=== PATIENT | male | born 1955 | race Caucasian/White ===

== ENCOUNTER 2020-05-07 08:45 | Day surgery (SDC) | payer BC ==
[2020-05-07] MEDS ORDERED: LACTATED RINGERS 1,000 ML IV ONE ×2 (08:55→10:26)
[2020-05-07] MEDS ORDERED: fentaNYL 250 MCG/5 ML VIAL IVP ONE (09:45)
[2020-05-07] MEDS ORDERED: MIDAZOLAM 2 MG/2 ML VIAL IVP ONE (09:45)
[2020-05-07] MEDS ORDERED: ONDANSETRON 4 MG/2 ML VIAL ONE (09:47)
[2020-05-07 10:53] VITALS: BP 103/71
== END 2020-05-07 08:46 | disposition home or self-care (01) ==
LOC: SDS 08:45
PROVIDERS: ATTEND Surgery
PROC: 0DBL8ZZ Excision of Transverse Colon, Via Natural or Artificial Opening Endoscopic (ICD-10-PCS; 2020-05-07)
PROC: 0DBN8ZZ Excision of Sigmoid Colon, Via Natural or Artificial Opening Endoscopic (ICD-10-PCS; 2020-05-07)
PROC: 0DBK8ZZ Excision of Ascending Colon, Via Natural or Artificial Opening Endoscopic (ICD-10-PCS; principal; 2020-05-07 10:00)
DX: Z12.11 Encounter for screening for malignant neoplasm of colon (principal); D12.3 Benign neoplasm of transverse colon; D12.2 Benign neoplasm of ascending colon; D12.7 Benign neoplasm of rectosigmoid junction; K57.30 Diverticulosis of large intestine without perforation or abscess without bleeding; K64.8 Other hemorrhoids; Z87.891 Personal history of nicotine dependence
CPT/HCPCS: 45380; J3010; J7120

== ENCOUNTER 2020-05-09 18:40 | Outpatient (CLI) | payer BC ==
--- NOTE | 2020-05-09 18:59 | XRAY Report ---
PROCEDURE: Chest 2 View X-Ray INDICATIONS: SCREENING FOR LUNG CANCER TECHNIQUE: 2 view(s) of the chest. COMPARISON: None. FINDINGS: Surgical changes and devices: None. Lungs and pleura: No pleural effusions or pneumothorax. Lungs are difficult to accurately assess du e to body habitus and reduced inspiratory volume. There is a mild prominence of the interstitium but this could simply represent crowding of the bronchovascular markings.. Mediastinum: Mediastinal contours are normal. Heart size is normal. Bones and chest wall: No suspicious bony abnormalities. Soft tissues appear unremarkable. IMPRESSION: Reduced inspiration, no definite acute disease. By this examination a large lung mass is not suspected. Please note that accurate screening for lung carcinoma is accomplished by low-dose no ncontrast specialized CT technique which is available. Reviewed by: Will Graham MD on 05/09/2020 6:58 PM PDT Approved by: Will Graham MD on 05/09/2020 6:58 PM PDT Station ID: [id number]
== END 2020-05-09 18:41 | disposition home or self-care (01) ==
LOC: DI 18:40
PROVIDERS: ATTEND Family Medicine
DX: Z12.2 Encounter for screening for malignant neoplasm of respiratory organs (principal)
CPT/HCPCS: 71046

== ENCOUNTER 2023-07-15 07:04 | Outpatient (CLI) | payer MEDICARE ==
--- NOTE | 2023-07-15 09:28 | Ultrasound Report ---
PROCEDURE: Aorta Screening INDICATIONS: SCREENING FOR CARDIOVASCULAR DISEASE TECHNIQUE: Real time scanning was performed of the aorta and iliac arteries, with image documentatio n. COMPARISON: None. FINDINGS: Aorta: Proximal aortic diameter measures 2.0 cm. Mid-aorta measures 2.0 cm. Distal aortic diameter is 1.7 cm. Iliac arteries: Not seen secondary to overlying bowel gas. IMPRESSION: The abdominal aorta is normal in caliber. The iliac arteries are not seen secondary to overlying casper l gas. Recommended intervals for follow-up imaging of ectatic aortas and abdominal aortic aneurysms, per ACR consensus guidelines: 2.5-2.9 cm: 5 years 3.0-3.4 cm: 3 years 3.5-3.9 cm: 2 years 4.0-4.4 cm: 1 year 4.5-4.9 cm: 6 months + endovascular referral 5.0-5.5 cm: 3-6 months + endovascular referral Reviewed by: Leo Martinez MD on 07/15/2023 9:27 AM PST Approved by: Leo Martinez MD on 07/15/2023 9:27 AM PST Station ID: [id number]
== END 2023-07-15 07:05 | disposition home or self-care (01) ==
LOC: DI 07:04
PROVIDERS: ATTEND Family Medicine
DX: Z13.6 Encounter for screening for cardiovascular disorders (principal)

== ENCOUNTER 2023-08-08 09:10 | Outpatient (CLI) | payer MEDICARE, OTHER ==
--- NOTE | 2023-08-08 13:18 | CT Report ---
PROCEDURE: Lung Cancer Screen INDICATIONS: HIST OF SMOKING TECHNIQUE: A CT scan of the chest was performed. Intravenous contrast media was not administered. Images were re corded and evaluated at appropriate window settings. Reformats: axial MIP of the chest, coronal and s agittal. For radiation dose reduction, the following was used: automated exposure control, adjustment of mA and/or kV according to patient size. COMPARISON: None. FINDINGS: Image quality: Excellent. Prior cancer history: None given Lungs and pleura: No pleural effusions. No pneumothorax. 7 x 8 mm pulmonary nodule, right lower lobe , axial image 56/4 and sagittal image 66/8. 3 x 5 mm juxtapleural nodule in the lingula of the left u pper lobe, axial image 64/4.. Mediastinum: Heart size is normal. No pericardial effusion. Moderate LAD coronary artery calcificatio ns. Aneurysmal dilatation of the ascending aorta, measuring 4.7 cm. No mediastinal adenopathy by size criteria. Chest wall and lower neck: Thyroid is unremarkable. No axillary or supraclavicular adenopathy by size . Bones: No aggressive osseous abnormality. Upper Abdomen: Unremarkable. IMPRESSION: Lung RAD: 3 - Probably Benign. Recommendation: Continue screening in 6 Months with LDCT Non-Lung Significant Findings: Aortic Aneurysm. Coronary artery calcifications, moderate Reviewed by: Alex Lange MD on 08/08/2023 1:16 PM PST Approved by: Alex Lange MD on 08/08/2023 1:16 PM PST Station ID: [id number]
== END 2023-08-08 09:11 | disposition home or self-care (01) ==
LOC: DI 09:10
PROVIDERS: ATTEND Nurse Practitioner Family
DX: Z12.2 Encounter for screening for malignant neoplasm of respiratory organs (principal); Z87.891 Personal history of nicotine dependence; I71.21 Aneurysm of the ascending aorta, without rupture; I25.10 Atherosclerotic heart disease of native coronary artery without angina pectoris

== ENCOUNTER 2023-11-17 15:39 | Outpatient (CLI) | payer MEDICARE ==
--- NOTE | 2023-11-17 16:07 | Sleep Patient Instructions ---
Sleep Center Visit Summary - Patient Visit Information Reason for Visit: Initial consultation - Patient Instructions Additional Instructions: You will continue with CPAP therapy with pressure set at 8-14 cmH2O. A supply prescription will be updated with your DME. We encourage you to continue to try to lose weight. Please follow up with the sleep care office in 1 year. - Clinic Information Contact: [facility] [address] [place] [email or web address] T: [phone]
--- NOTE | 2023-11-17 16:13 | SLEEP CARE CONSULTATION ---
Information from patient questionnaire entered by Nguyen Leary. I have reviewed and concur with the information entered by Nguyen Leary. This document represents the service I personally performed and the decisions made by me, Rosana De La Torre ARNP. History of Present Illness Service Date and Time: 11/17/2023 1539 Reason for Visit: New patient, Previously diagnosed sleep apnea, sleep apnea on CPAP therapy Chief Complaint: reports: Other (ESTABLISH A NEW DOCTOR) Date of Onset: 09/2016 Usual bedtime: 2200 Time it takes to fall asleep: 15MINS Snores at night: Yes Observed to quit breathing while asleep: No Sleeps alone due to snoring: No Number of times waking at night: 2-3 Reasons for waking at night: reports: Bathroom Toss, Turn, or Twitch while sleeping: Yes Recalls having dreams: Yes Usually gets out of bed at: 9931-6543 Feels refreshed in the morning: Yes Morning headache: No Sleepy or fatigued during the day: No Ever fallen asleep while driving: No Takes day naps: No Dreams during day naps: No Prior sleep studies: Yes Year and Where: 09/2016 [facility] Additional HPI information: PERNELL BENNETT was previously diagnosed to have moderate, AHI 27.1, obstructive sleep apnea-hypopnea syndrome as seen in sleep study dated 09/22/2016 at [facility] and comes in today to establish care for CPAP therapy. - Parasomnia Symptoms Ever been unable to move upon waking from sleep: No Walks in sleep: No Talks in sleep: No Ever acted out dreams in sleep: No Ever felt weak in the knees when startled or emotional: No Bothered by creepy, crawly, restless sensations in legs: No Problems with memory or concentration: No CPAP Compliance Data - Data Reviewed with Patient Average duration of nightly device use: 7 hours 51 mins Compliance rate %: 98.9 (89/90 days used) Current pressure setting (cmH2O): 8-14 Average residual AHI: 3.9 Central apnea: 0.2 Obstructive apnea: 0.9 Hypopnea: 2.8 Average large leak: 1 min 54 secs Compliance data discussion: He has a Dreamstation 2 that was a replacement of his recalled CPAP. He is getting his supplies from [employer]. He is using a full face AirFit F20, medium cushion. Subjective Patient concerns: reports: mask discomfort (straps leaves sneed), dry mouth, nose, throat (occasional dry mouth). denies: aerophagia, air blowing in eyes, mask leak noise, condensation in mask/hose, nasal congestion, epistaxis Observed to snore while using device: No Current pressure setting perceived as: comfortable On therapy, patient: reports: sleeping better, awakening more refreshed, being more awake and alert during the day, more rested overall. denies: drowsiness while driving Initial Errol Sleepiness Scale score: 3 (11/07/23) Past Medical History Past Medical History: reports: Hypertension, Gout, Hypothyroidism Social History The patient's occupation is a RETIRED. Patient is and lives in [place]. Have you smoked in the past 12 months: No Cigarettes per day (20/pack): 20 Years of smokin Quit date: 1988 Smoking Pack Years: 20.0 Alcohol use: Yes Alcohol amount and frequency: 1 BEER 1-2 A WEEK Caffeine use: Yes Caffeine amount and frequency: couple cups coffee every morning Family History Family history of sleep disordered breathing: Yes Family Hx Sleep Apnea: Father: Sleep apnea - Untreated, Sibling: Snoring, Sleep apnea - Treated Allergies and Home Medications Known drug allergies: Yes ( LISTED ) Drug allergies reviewed: Yes Home medication list reviewed: Yes (as listed) Allergy and home medication list: Allergies naproxen [From Naprosyn] Allergy (Verified 11/15/23 11:17) Unknown Penicillins Allergy (Verified 11/15/23 11:17) Unknown Sulfa (Sulfonamide Antibiotics) Allergy (Verified 11/15/23 11:17) Unknown sulfamethoxazole [From Septra] Allergy (Verified 11/15/23 11:17) Unknown trimethoprim [From Septra] Allergy (Verified 11/15/23 11:17) Unknown Home Medications Medication Instructions Recorded Confirmed Last Taken Type Levothyroxine [Synthroid] 75 mcg PO QDAC 05/06/20 11/15/23 05/06/20 History Losartan Potassium 25 mg PO DAILY 05/06/20 11/15/23 05/06/20 History Ascorbic Acid [Vitamin C] See Rx Instructions .ROUTE .COM[facility] 11/15/23 11/15/23 Unknown History Calcium Carbonate [Calcium] See Rx Instructions .ROUTE .COMPLEX 11/15/23 11/15/23 Unknown History Cholecalciferol (Vitamin D3) See Rx Instructions .ROUTE .[facility] 11/15/23 11/15/23 Unknown History [Vitamin D3] Cyclobenzaprine HCl See Rx Instructions .ROUTE .[facility] 11/15/23 11/15/23 Unknown History Focus Factor See Rx Instructions .ROUTE .[facility] 11/15/23 11/15/23 Unknown History Loratadine [Allergy Relief] See Rx Instructions .ROUTE .[facility] 11/15/23 11/15/23 Unknown History Magnesium See Rx Instructions .ROUTE .[facility] 11/15/23 11/15/23 Unknown History Multivit-Min/Folic/Vit K/Lycop See Rx Instructions .ROUTE .[facility] 11/15/23 11/15/23 Unknown History [One Daily Men's 50 Plus D3 Tab] Quercetin See Rx Instructions .ROUTE .[facility] 11/15/23 11/15/23 Unknown History Serolean See Rx Instructions .ROUTE .[facility] 11/15/23 11/15/23 Unknown History Terazosin [Hytrin] See Rx Instructions .ROUTE .[facility] 11/15/23 11/15/23 Unknown History Ubidecarenone [Co Q-10] See Rx Instructions .ROUTE .[facility] 11/15/23 11/15/23 Unknown History Review of Systems Weight gain over past 5 years: 5 Weight loss over past 5 years: 5 Cardiovascular: reports: high blood pressure Respiratory: reports: wheeze Urinary: reports: frequency Ear/Nose/Throat: reports: nasal congestion, sinus problems, nose bleeds, dry mouth/throat, tonsillectomy, wisdom teeth removed Endocrine: reports: thyroid disease Musculoskeletal: reports: back pain Immunologic: reports: sneezing, allergies to food or environment Physical Exam Vital signs obtained and entered by: NGUYEN Esqueda MA Blood Pressure: 136/84 (LEFT ARM) Cuff size: long Heart Rate: 88 O2 Saturation: 96 Height: 5 ft 8.25 in Weight: 252 lb 9.6 oz Body Mass Index: 38.1 BMI Classification: Obese Neck circumference: 17.25 Heart: regular rate and rhythm Lungs: clear bilaterally Impression and Plan 1. Obstructive Sleep Apnea-Hypopnea Syndrome, moderate, with good treatment compliance and good apnea control. On CPAP therapy, the patient has better sleep quality and is more rested overall. He is in need of supplies. I will send an updated supply prescription to [facility] so he can get more supplies. He has significant improvement of his sleep apnea and is satisfied with current CPAP therapy. He says he has no issues with his mask except for lines on his face. I advised him to try cloth barriers on the straps to reduce lines on his face. He voiced understanding. Patient denies significant problems with oral dryness or any nasal congestion, epistaxis, skin irritation or aerophagia. Patient's apnea severity and rationale for treatment to reduce apnea, improve sleep quality and reduce cardiovascular and cerebrovascular events was reviewed. I also reviewed the benefit of consistent device use of CPAP for hypertension. 2. Obesity, unspecified. Currently patients BMI is 38.1. Obesity increases the risk of apnea, CPAP pressure requirements and overall health risks especially cardiovascular and diabetes. Thus patient is advised to lose weight. * Continue auto CPAP pressure at 8-14 cmH2O * Update supply prescription * Notify me if snoring with mask or feeling that the pressure is too much or too little * Attempt to lose weight * Call this office if any problems using CPAP * Return for follow up in 12 months, or sooner if concerns arise Counseling Topics: Spare mask, Weight loss health impact Prescriptions: Device supplies Follow up with Sleep Care in: 1 year Visit Type: In Office Time Spent with Patient (minutes): 30 Provider Statement: I spent 100% of the Face to Face Visit with the patient with greater than 50% spent counseling the patient and coordination of care.
[2023-11-17 16:18] VITALS: BP 136/84; O2SAT 96
== END 2023-11-17 15:40 | disposition home or self-care (01) ==
LOC: SC 15:39
PROVIDERS: ATTEND Nurse Practitioner Family
DX: G47.33 Obstructive sleep apnea (adult) (pediatric) (principal); Z87.891 Personal history of nicotine dependence; E66.9 Obesity, unspecified; Z68.38 Body mass index [BMI] 38.0-38.9, adult
CPT/HCPCS: 99203; G0463; 99212

== ENCOUNTER 2024-02-07 11:03 | Outpatient (CLI) | payer MEDICARE ==
--- NOTE | 2024-02-07 22:10 | CT Report ---
PROCEDURE: Chest WO INDICATIONS: SOLITARY PULMONARY NODULE TECHNIQUE: A CT scan of the chest was performed. Intravenous contrast media was not administered. Images were re corded and evaluated at appropriate window settings. Reformats: axial MIP of the chest, coronal and s agittal. For radiation dose reduction, the following was used: automated exposure control, adjustment of mA and/or kV according to patient size. COMPARISON: 08/08/2023 FINDINGS: Image quality: Diagnostic. Chest wall and lower neck: No thyroid nodule which requires sonographic follow up. No axillary or sup raclavicular adenopathy by size. Lungs and pleura: Pulmonary nodules are again seen: Left upper lobe, series 4 image 60, 4 mm, similar to prior Right lower lobe series 4 image 46, 7 x 6 mm, stable No new pulmonary nodules are seen. No focal infiltrates are seen. No pneumothorax or pleural effusions can be seen. Mediastinum: Mild coronary artery calcification can be seen. Heart size is normal. No pericardial eff usion. No large vessel abnormality. No mediastinal adenopathy by size criteria. Bones: No aggressive osseous abnormality. Age-appropriate degenerative changes are seen. There is a ccentuated thoracic kyphosis. Upper Abdomen: Diverticulosis can be seen, without sarahi findings of active diverticulitis. The visua lized portions of the upper abdominal structures are otherwise within normal limits. IMPRESSION: Stable bilateral pulmonary nodules. Recommend annual low-dose CT chest screening examinations, as long as the patient meets the published screening criteria. Additional findings: Moderate coronary artery calcification Diverticulosis, without findings of active diverticulitis. Reviewed by: Yovany Chao MD on 02/07/2024 9:08 PM JANET Approved by: Yovany Chao MD on 02/07/2024 9:08 PM JANET Station ID: [id number]
== END 2024-02-07 11:04 | disposition home or self-care (01) ==
LOC: DI 11:03
PROVIDERS: ATTEND Student in an Organized Health Care Education/Training Program
DX: R91.8 Other nonspecific abnormal finding of lung field (principal); I25.10 Atherosclerotic heart disease of native coronary artery without angina pectoris; K57.90 Diverticulosis of intestine, part unspecified, without perforation or abscess without bleeding